=== PATIENT | female | born 1965 | race Caucasian/White ===

== ENCOUNTER 2017-02-19 09:05 | Emergency (ER) | payer BC, OTHER ==
[~2017-02-19] VITALS: Ht 162.6 cm; Wt 122.0 kg
[~2017-02-19 09:05] MED LIST: ALBU1AER INH; CEPH250 PO; DUONI NEB; HYDR-3534 PO; LORA1TAB PO; OMEP20TA39 PO; PERC5TAB12 PO; POTA1080 PO; TRAZ150T75 PO; ZOFR4TAB3 SL
[2017-02-19 09:08] VITALS: BP 172/81; PULSE 98; RESP 20; TEMP 97.8; O2SAT 96
[2017-02-19 10:12] LABS: BACTERIA, URINE OCC /hpf; BLOOD, URINE TRACE (NEG); COMMENT (UR) CULT NOT INDICATED; CULTURE IF INDICATED CULT NOT INDICATED; GLUCOSE,URINE NEG (NEG); HYALINE CAST, URINE 2 /lpf (RARE); KETONE, URINE NEG (NEG); MUCUS URINE FEW /lpf (OCC); NITRITE,URINE NEG (NEG); PH, URINE 6.5 (5.0-8.5); SQUAMOUS EPITHELIAL CELL URINE 5 /hpf (0-5); URINE COLOR YELLOW (YELLW/STRAW)
--- NOTE | 2017-02-19 11:17 | PD ---
HPI Chief Complaint: Flank/Kidney Pain Time Seen by Provider: 11:16 Travel History International Travel<30 days: No Contact w/Intl Traveler<30days: No Traveled to known affect area: No History of Present Illness HPI 51-year-old female with history of renal calculi requiring lithotripsy in the past, COPD, "borderline" diabetes, presents to the emergency department today for evaluation of lower abdominal pressure with associated nausea, an episode of vomiting, and bilateral flank pain. Patient states she has been told in the past that she has kidney stones and she is followed by Dr. Cisneros. She recently had x-ray imaging that allegedly showed that the one on the left had moved out of the kidney, but she states she has not yet passed and her pain is only getting worse. Denies any vaginal discharge or bleeding. Denies any fever or chills. No chest pain or tightness. She is requesting a breathing treatment, stating that she has been unable to get her DuoNeb treatments since being at work. She has no other symptoms reported this time. PFSH Past Medical History Asthma: Yes Blood Disorders: No Cancer: No Cardiovascular Problems: No COPD: Yes Endocrine: Yes (HYPOGLYCEMIA) Gastrointestinal Disorders: Yes (GERD) Genitourinary: No Hepatitis: No Hiatal Hernia: No Immune Disorder: No Musculoskeletal: No Neurologic: No (LEFT OUT THIGH - BURNING SENSATION WITH TINGLING, ITCHING) Psychiatric: Yes (ANXIETY) Reproductive: No Respiratory: Yes (COPD) Thyroid Disease: No ?: Not : 1 Para: 1 Ovarian Cysts: Yes (REMOVED IN MAY) Tubal Ligation: Yes Past Surgical History Abdominal Surgery: Yes (LAP LIOR) AICD: No Body Medical Devices: NONE Cardiac Surgery: No Ear Surgery: No Endocrine Surgery: No Eye Surgery: No Genitourinary Surgery: Yes (HX MULTIPLE RIGHT RENAL CALC. RETRIEVAL/ ESWL/ STENT) Gynecologic Surgery: Yes (OVARIAN CYSTECTOMY, TUBAL LIGATION) Joint Replacement: No Oral Surgery: No Pacemaker: No Thoracic Surgery: No Other Surgery: Yes Social History Alcohol Use: Yes (RARELY) Tobacco Use: Yes (1 PPD) Substance Use: No Allergies-Medications (Allergen,Severity, Reaction): Coded Allergies: acetaminophen (Unverified Adverse Reaction, Unknown, gi upset, 02/19/17) PT STATES SHE PREFERS [facility] Reported Meds & Prescriptions Reported Meds & Active Scripts Active Tramadol (Tramadol HCl) 50 Mg Tab 50 Mg PO Q6H PRN 12 Days Reported Prednisone 10 Mg Tab 10 Mg PO DAILY Theophylline ER 12 HR (Theophylline) 200 Mg Tab 200 Mg PO DAILY Breo Ellipta Inh (Fluticasone/Vilanterol) 100-25 Mcg/Act Inh 1 Puff INH DAILY Use daily at the same time. Incruse Ellipta Inh (Umeclidinium [place] Inh) 0.0625 Mg/Act Inh 62.5 Mcg INH DAILY Proair Hfa 8.5 GM Inh (Albuterol Sulfate) 90 Mcg/Act Aer 1 Puff INH BID PRN 108 mcg/actuation Albuterol Neb (Albuterol Sulfate) 2.5 Mg/3 Ml Neb 2.5 Mg NEB Q4HR NEB While awake Lorazepam 1 Mg Tab 1 Mg PO HS Omeprazole 20 Mg Tab 20 Mg PO DAILY Zofran (Ondansetron HCl) 4 Mg Tab 4 Mg PO Q6HR PRN Trazodone HCl 1 Pow Pow 150 Mg PO HS Resp: Albuterol/Ipratropium 2.5 Mg/0.5 Mg (Albuterol/Ipratropium) 1 Amp Nebu 3 Ampule NEB Q6HR NEB Proair Hfa (Albuterol Sulfate) 8.5 Gm Aero 2 Puff INH TID * 2 PUFFS INHALED 15 MINUTES PRIOR TO EXERCISE * * SHAKE WELL BEFORE USE * Resp: Albuterol/Ipratropium 2.5 Mg/0.5 Mg (Albuterol/Ipratropium) 1 Amp Nebu 1 Amp NEB Q6H PRN PT STATES DOSE IS 3.0/2.5 Review of Systems Except as stated in HPI: all other systems reviewed are Neg Physical Exam Narrative GENERAL: Obese female patient, sitting up in bed, in no acute distress SKIN: Focused skin assessment warm/dry. HEAD: Atraumatic. Normocephalic. EYES: Pupils equal and round. No scleral icterus. No injection or drainage. ENT: No nasal bleeding or discharge. Mucous membranes pink and moist. NECK: Trachea midline. No JVD. CARDIOVASCULAR: Regular rate and rhythm. No murmur appreciated. RESPIRATORY: No accessory muscle use. Clear to auscultation. Breath sounds equal bilaterally. GASTROINTESTINAL: Abdomen soft, rotund, nondistended. Suprapubic tenderness to palpation. Hepatic and splenic margins not palpable. MUSCULOSKELETAL: No obvious deformities. No clubbing. No cyanosis. No edema. NEUROLOGICAL: Awake and alert. No obvious cranial nerve deficits. Motor grossly within normal limits. Normal speech. PSYCHIATRIC: Appropriate mood and affect; insight and judgment normal. Data Data Last Documented VS Vital Signs Date Time Temp Pulse Resp B/P (MAP) Pulse Ox O2 Delivery O2 Flow Rate FiO2 02/19/17 11:59 97 21 02/19/17 11:31 84 20 178/94 (122) Room Air 02/19/17 09:08 97.8 Orders Orders Urinalysis - C+S If Indicated (02/19/17 09:27) Iv Access Insert/Monitor (02/19/17 11:19) Complete Blood Count With Diff (02/19/17 11:19) Basic Metabolic Panel (Bmp) (02/19/17 11:19) Sodium Chlor 0.9% 1000 Ml Inj (Ns 1000 M (02/19/17 11:30) Ketorolac Inj (Toradol Inj) (02/19/17 11:30) Ct Abd/Pel W/O Iv Contrast (02/19/17 ) Ondansetron Inj (Zofran Inj) (02/19/17 11:30) Albuterol-Ipratropium Neb (Duoneb Neb) (02/19/17 11:30) Labs Laboratory Tests Test 02/19/17 09:35 02/19/17 11:50 Urine Color YELLOW Urine Turbidity CLEAR Urine pH 6.5 Urine Specific [place] 1.018 Urine Protein 100 mg/dL Urine Glucose (UA) NEG mg/dL Urine Ketones NEG mg/dL Urine Occult Blood TRACE Urine Nitrite NEG Urine Bilirubin NEG Urine Urobilinogen 2.0 MG/DL Urine Leukocyte Esterase NEG Urine RBC 2 /hpf Urine WBC 1 /hpf Urine Squamous Epithelial Cells 5 /hpf Urine Bacteria OCC /hpf Urine Hyaline Casts 2 /lpf Urine Mucus FEW /lpf Microscopic Urinalysis Comment CULT NOT INDICATED White Blood Count 14.0 TH/MM3 Red Blood Count 5.30 MIL/MM3 Hemoglobin 16.2 GM/DL Hematocrit 49.6 % Mean Corpuscular Volume 93.6 FL Mean Corpuscular Hemoglobin 30.5 PG Mean Corpuscular Hemoglobin Concent 32.6 % Red Cell Distribution Width 14.5 % Platelet Count 189 TH/MM3 Mean Platelet Volume 8.5 FL Neutrophils (%) (Auto) 66.7 % Lymphocytes (%) (Auto) 24.1 % Monocytes (%) (Auto) 6.8 % Eosinophils (%) (Auto) 1.7 % Basophils (%) (Auto) 0.7 % Neutrophils # (Auto) 9.3 TH/MM3 Lymphocytes # (Auto) 3.4 TH/MM3 Monocytes # (Auto) 1.0 TH/MM3 Eosinophils # (Auto) 0.2 TH/MM3 Basophils # (Auto) 0.1 TH/MM3 CBC Comment DIFF FINAL Differential Comment Blood Urea Nitrogen 16 MG/DL Creatinine 1.04 MG/DL Random Glucose 117 MG/DL Calcium Level 9.0 MG/DL Sodium Level 140 MEQ/L Potassium Level 3.8 MEQ/L Chloride Level 103 MEQ/L Carbon Dioxide Level 27.3 MEQ/L Anion Gap 10 MEQ/L Estimat Glomerular Filtration Rate 56 ML/MIN MDM Medical Decision Making Medical Screen Exam Complete: Yes Emergency Medical Condition: Yes Medical Record Reviewed: Yes Differential Diagnosis Renal colic versus renal calculi versus UTI Narrative Course 51 year-old female presents to the emergency department for evaluation of lower abdominal pressure with bilateral flank pain with history of renal calculi. Patient appears without distress. She is requesting a breathing treatment and pain control. CT imaging as well as basic lab work is ordered. Lab work is similar to assess lab work. No acute abnormalities. CT imaging shows numerous nonobstructing renal calculi, diverticulosis without diverticulitis, and moderate hepatic steatosis.. Findings are discussed with patient. She states that she is going to need something for pain and has appointment with Dr. Cisneros on March 07. I have given her prescription for tramadol outpatient. She tells me "that's not to work." She then moved forward and requests Lortab but I reminded her she's allergic to Tylenol which she had already told us and her primary care provider she cannot take Tylenol because of her allergy. I told her that tramadol is the strongest pain medication I will provide and to contact her urologist for more prompt follow- up.. She agrees to return immediately with any acute worsening of symptoms. Diagnosis Primary Impression: Renal calculi Referrals: Yrn Cisneros MD Primary Care Physician Patient Instructions: General Instructions, Kidney Stones (ED) Additional Instructions: Maintain adequate oral hydration Follow-up with your primary care provider Follow-up with urologist Return immediately with any acute worsening of symptoms Med/Other Pt SpecificInfo: Prescription(s) given Scripts Tramadol (Tramadol) 50 Mg Tab 50 MG PO Q6H Y for PAIN for 12 Days, #12 TAB 0 Refills Prov: Alissa Chiu 02/19/17 Disposition: 01 DISCHARGE HOME Condition: Stable Alissa Chiu Feb 19, 2017 11:17
[2017-02-19] MEDS ORDERED: ONDANSETRON HCL 4 MG/2 ML VIAL IV PUSH ONE (11:30)
[2017-02-19] MEDS ORDERED: RESP: ALBUTEROL 2.5 MG/IPRATROPIUM 0.5 MG NEB (SCH) NEB ONE (11:30)
[2017-02-19] MEDS ORDERED: SODIUM CHLOR 0.9% 1000 ML INJ 1,000 ML IV ONE (11:30)
[2017-02-19] MEDS ORDERED: KETOROLAC TROMETHAMINE 30 MG/ML (IVP) VIAL IV PUSH ONE (11:30)
[2017-02-19 11:31] VITALS: BP 178/94; PULSE 84; RESP 20; O2SAT 95
[2017-02-19] MEDS ORDERED: ZOFR4TAB PO (11:42)
[2017-02-19] MEDS ORDERED: LORA1TAB12 PO (11:42)
[2017-02-19] MEDS ORDERED: TRAZPOW PO (11:42)
[2017-02-19] MEDS ORDERED: UMEC1INH INH (11:42)
[2017-02-19] MEDS ORDERED: PRED10 PO (11:42)
[2017-02-19] MEDS ORDERED: ALBU0.08 NEB (11:42)
[2017-02-19] MEDS ORDERED: OMEP20TA PO (11:42)
[2017-02-19] MEDS ORDERED: ALBUAER3 INH (11:42)
[2017-02-19] MEDS ORDERED: THEO200T9 PO (11:42)
[2017-02-19] MEDS ORDERED: FLUT1INH INH (11:42)
[2017-02-19 11:59] VITALS: O2SAT 97
[2017-02-19 12:04] LABS: AUTOMATED NEUTROPHIL # 9.3 TH/MM3 (1.8-7.7); BASOPHIL # 0.1 TH/MM3 (0-0.2); BASOPHIL % 0.7 % (0.0-2.0); EOSINOPHIL # 0.2 TH/MM3 (0-0.4); EOSINOPHIL % 1.7 % (0.0-4.0); HEMATOCRIT 49.6 % (35.0-46.0); HEMO FLAGS DIFF FINAL; LYMPH % 24.1 % (9.0-44.0); LYMPHOCYTE # 3.4 TH/MM3 (1.0-4.8); MEAN CELL VOLUME 93.6 FL (80.0-100.0); MEAN CORPUSCULAR HEMOGLOBIN 30.5 PG (27.0-34.0); MEAN CORPUSCULAR HGB CONC 32.6 % (32.0-36.0); MONO % 6.8 % (0.0-8.0); NEUT % 66.7 % (16.0-70.0); PLATELET COUNT 189 TH/MM3 (150-450); RED CELL DISTRIBUTION WIDTH 14.5 % (11.6-17.2)
[2017-02-19 12:19] LABS: BICARBONATE 27.3 MEQ/L (21.0-32.0); POTASSIUM 3.8 MEQ/L (3.5-5.1)
--- NOTE | 2017-02-19 13:23 | RADRPT ---
EXAM DATE/TIME: 02/19/2017 12:45 [facility] COMPARISON: CT ABDOMEN & PELVIS W/O CONTRAST, September 11, 2014, 15:25. INDICATIONS : Bilateral flank pain. ORAL CONTRAST: No oral contrast ingested. RADIATION DOSE: 8.59 CTDIvol (mGy) MEDICAL HISTORY : Renal calculi. SURGICAL HISTORY : Tubal ligation. ENCOUNTER: Initial ACUITY: 1 day PAIN SCALE: 4/10 LOCATION: Bilateral flank TECHNIQUE: Volumetric scanning of the abdomen and pelvis was performed. Using automated exposure control and ad justment of the mA and/or kV according to patient size, radiation dose was kept as low as reasonably achievable to obtain optimal diagnostic quality images. DICOM format image data is available electro nically for review and comparison. FINDINGS: LOWER LUNGS: The visualized lower lungs are clear. LIVER: Decreased attenuation without lesion. There is no dilation of the biliary tree. Cholecystectomy clip s. SPLEEN: Normal size without lesion. PANCREAS: Within normal limits. KIDNEYS: Normal in size and shape. There is no mass or hydronephrosis. Punctate bilateral renal calculi measu ring 2-4 mm in each kidney. No ureteral calculi. ADRENAL GLANDS: Within normal limits. VASCULAR: There is no aortic aneurysm. BOWEL/MESENTERY: Diverticulosis without diverticulitis. There is no free intraperitoneal air or fluid. ABDOMINAL WALL: Within normal limits. RETROPERITONEUM: There is no lymphadenopathy. BLADDER: No wall thickening or mass. REPRODUCTIVE: Within normal limits. INGUINAL: There is no lymphadenopathy or hernia. MUSCULOSKELETAL: Within normal limits for patient age. CONCLUSION: 1. Moderate hepatic steatosis. 2. Diverticulosis without diverticulitis. 3. Numerous nonobstructing bilateral renal calculi. 4. Status post cholecystectomy. Tee Meyer MD on February 19, 2017 at 13:17 Board Certified Radiologist. This report was verified electronically.
[2017-02-19] MEDS ORDERED: TRAM50TA PO (13:38)
== END 2017-02-19 14:15 | disposition home or self-care (01) ==
LOC: NEPC 09:05
DX: N20.0 Calculus of kidney (principal); J44.9 Chronic obstructive pulmonary disease, unspecified; F17.200 Nicotine dependence, unspecified, uncomplicated; K76.0 Fatty (change of) liver, not elsewhere classified; K57.30 Diverticulosis of large intestine without perforation or abscess without bleeding; Z90.49 Acquired absence of other specified parts of digestive tract
CPT/HCPCS: 74176; 80048; 81001; 85025; 94664; 96374; 96375; 99285; J1885; J2405; J7030